=== PATIENT | female | born 1950 | race Caucasian/White ===

== ENCOUNTER 2023-06-09 05:29 | Day surgery (SDC) | payer MEDICARE, OTHER ==
[2023-06-09] VITALS (21 sets, daily range): BP systolic 99–170; BP diastolic 67–86; PULSE 65–81; RESP 10–16; TEMP 97.1; O2SAT 95–100
[~2023-06-09] VITALS: Ht 152.4 cm; Wt 57.2 kg
[~2023-06-09 05:29] MED LIST: CYCL1DRO OP; LEVO50TA PO; ringers solution, lacted 1,000 ML IV SCH
[2023-06-09] MEDS ORDERED: oxymetazoline 15 ML nasal spray NS ONE ×2 (05:30→08:46)
[2023-06-09] MEDS ORDERED: cefazolin 2gm/D5W 100mL 100 ML IV ONE (05:30)
[2023-06-09] MEDS ORDERED: tranexamic acid inj. 1,000 MG in normal saline IV soln 100ML IV ONE (05:30)
[2023-06-09] MEDS ORDERED: famotidine 20mg tablet PO ONE (05:30)
[2023-06-09] MEDS ORDERED: cocaine 4% topical solution 4ml bottle ONE (06:55)
[2023-06-09] MEDS ORDERED: epiNEPHrine 1 mg/ml 30ml MDV ONE (06:55)
[2023-06-09] MEDS ORDERED: BUPIVAcaine 2.5mg/ml inj 50ml vial (contains preservative) ONE (06:55)
[2023-06-09] MEDS ORDERED: tranexamic acid 100mg/ml inj. ONE (06:55)
[2023-06-09] MEDS ORDERED: mupirocin 2% ointment 22GM ONE (06:56)
[2023-06-09] MEDS ORDERED: LIDOcaine 1% w/EPI 1:100,000 inj. MDV 50 ML VIAL ONE (07:13)
[2023-06-09] MEDS ORDERED: fentaNYL/PF 50MCG/1 ML 2ML syringe ONE (08:05)
[2023-06-09] MEDS ORDERED: midazolam 1 mg/ML 2ml injection ONE (08:06)
[2023-06-09] MEDS ORDERED: propofol inj 20 ML IV ONE (08:06)
[2023-06-09] MEDS ORDERED: sevoflurane 250ml liquid IH ONE (08:08)
[2023-06-09] MEDS ORDERED: cefTAZidime 1gm inj ONE ×2 (08:23→09:09)
[2023-06-09] MEDS ORDERED: mupirocin 2% cream 15gm TP ONE (08:46)
[2023-06-09] MEDS ORDERED: epiNEPHrine 1 mg/ml 30ml MDV ENDO ONE (08:46)
[2023-06-09] MEDS ORDERED: cefTAZidime 1gm inj IVT ONE (08:46)
[2023-06-09] MEDS ORDERED: cocaine 4% topical solution 4ml bottle TP ONE (08:46)
[2023-06-09] MEDS ORDERED: proCHLORperazine 10 MG/2 ml inj IV PRN (08:55)
[2023-06-09] MEDS ORDERED: morphine 4 MG/ML inj SYRINge IV PRN (08:55)
[2023-06-09] MEDS ORDERED: ringers solution, lacted 1,000 ML IV SCH (08:55)
[2023-06-09] MEDS ORDERED: ondansetron/PF 4mg/2ml inj IV PRN (08:55)
[2023-06-09] MEDS ORDERED: morphine 2 MG/ML inj. syringe IV PRN (08:55)
[2023-06-09] MEDS ORDERED: meperidine/PF 25mg/ml syringe IV PRN ×3 (08:55)
[2023-06-09] MEDS ORDERED: ondansetron/PF 4mg/2ml inj ONE (09:26)
[2023-06-09] MEDS ORDERED: dexamethasone sod phosphate 4mg/ml inj. ONE (09:26)
--- NOTE | 2023-06-09 09:46 | NUR ---
Received from OR via [facility] TO RR [facility], accompanied by Anesthesiologist RICHARD and report given by Anesthesiologist. PT PRESENTS ON 6L VIA MASK, VSS. PATIENT DOES NOT C/O PAIN, NAUSEA, OR VOMITING AT THIS TIME. LR RUNNING THRU PIV. COTTONOIDS BILATERAL NARES, NO SIGNS OF BLEEDING.
[2023-06-09] MEDS ORDERED: oxymetazoline 15 ML nasal spray NS PRN (10:05)
[2023-06-09] MEDS ORDERED: salt irrigation nasal spray 45 ML SPRAY NS PRN (10:05)
--- NOTE | 2023-06-09 10:12 | NUR ---
CALLED PATIENTS , MARIA LUISA AND ADVISED OF STATUS
[2023-06-09] MEDS: labetalol 20mg/4ml (5mg/ml) syringe IV PRN ×2 (10:22→10:42)
--- NOTE | 2023-06-09 10:23 | NUR ---
REMOVED COTTONOIDS -APPLIED GAUZE AND NASAL DRESSING JIMENEZ. NO S/S OF BLEEDING AND PATIENT TOLERATED WELL.
--- NOTE | 2023-06-09 11:36 | NUR ---
PT HAS MET D/C CRITERIA. IV D/C'D. VSS. I HAVE REVIEWED D/C INSTRUCTIONS WITH PATIENT AND SHE HAS VERBALIZED UNDERSTANDING OF INSTRUCTIONS. ALL QUESTIONS, COMMENTS, AND CONCERNS WERE ANSWERED AT THIS TIME. DISCHARGE INSTRUCTIONS WERE REVIEWED WITH PATIENTS , MARIA LUISA WELL. OCEAN SPRAY AND BACTROBAN APPLIED BEFORE DISCHARGE. GAUZE DRESSING IN PLACE HELD BY NASAL DRESSING JIMENEZ, NO SIGNS OR SYMPTOMS OF BLEEDING. PT WAS ABLE TO GET DRESSED WITH ASSISTANCE AND AMBULATED TO W/C WITH STANDBY ASSIST. PT WAS WHEELED OUT TO PRIVATE VEHICLE AND TRANSFERRED INTO VEHICLE WITHOUT INCIDENT. PATIENT D/C HOME WITH ALL BELONGINGS.
== END 2023-06-09 11:36 | disposition home or self-care (01) ==
LOC: PAS 05:29
PROVIDERS: ATTEND Otolaryngology
DX: J34.2 Deviated nasal septum (principal); J34.3 Hypertrophy of nasal turbinates; J32.8 Other chronic sinusitis; J34.89 Other specified disorders of nose and nasal sinuses; Z87.891 Personal history of nicotine dependence; Z96.652 Presence of left artificial knee joint; Z90.710 Acquired absence of both cervix and uterus; Z98.890 Other specified postprocedural states; Z91.013 Allergy to seafood; Z88.8 Allergy status to other drugs, medicaments and biological substances; Z79.899 Other long term (current) drug therapy
CPT/HCPCS: 30140; 30520; 31240; 31254; 31267; 31276; 61782; 82948; 93005; A6402; J0171; J0690; J0713; J1100; J2175; J2250; J2405; J2704; J3010; J3490; J7030; J7050; J7120; Z7506; Z7508; Z7512; A4618; A6449; A7000